=== PATIENT | female | born 1975 | race Asian ===

== ENCOUNTER 2016-07-14 22:08 | Emergency (ER) | payer BC ==
[~2016-07-14] VITALS: Ht 160 cm; Wt 82.0 kg
[~2016-07-14 22:08] MED LIST: LEVO25TA53 PO; NITR-58 PO
[2016-07-14 22:20] VITALS: Ht 160 cm; Wt 82.0 kg
[2016-07-15 01:51] LABS: ADD SCAN DIFF NO
[2016-07-15 01:56] LABS: BASOPHIL # 0.1 10^3/ul (0.0-0.1); BASOPHILS % 0.8 % (0.0-2.0); EOSINOPHILS # 0.6 10^3/ul (0.0-0.5); EOSINOPHILS % 6.9 % (0.0-7.0); HEMATOCRIT 39.7 % (37.0-47.0); LYMPHOCYTES % 35.9 % (15.0-51.0); MEAN CORPUSCULAR HEMOGLOBIN 28.6 pg (29.0-33.0); MEAN CORPUSCULAR HGB CONC 32.7 g/dl (32.0-37.0); MEAN CORPUSCULAR VOLUME 87.4 fl (82.0-101.0); MEAN PLATELET VOLUME 10.4 fl (7.4-10.4); MONOCYTE # 0.5 10^3/ul (0.3-0.9); MONOCYTES % 5.7 % (0.0-11.0); NEUTROPHIL # 4.2 10^3/ul (1.6-7.5); NEUTROPHILS % 50.3 % (39.0-77.0); PLATELET COUNT 351 10^3/UL (140-415); RED BLOOD COUNT 4.54 10^6/ul (4.20-5.40); RED CELL DISTRIBUTION WIDTH 12.9 % (11.5-14.5); WHITE BLOOD COUNT 8.3 10^3/ul (4.8-10.8)
[2016-07-15 02:14] LABS: INR 0.87; PROTIME 11.8 Sec (12.2-14.2); PT RATIO 0.9
[2016-07-15 02:15] LABS: PARTIAL THROMBOPLASTIN TIME 28.1 Sec (25.0-35.0)
[2016-07-15 02:18] LABS: ALANINE AMINOTRANSFERASE 38 IU/L (13-69); ALBUMIN 5.2 g/dl (3.3-4.9); ALBUMIN/GLOBULIN RATIO 1.67; ALKALINE PHOSPHATASE 56 IU/L (42-121); ANION GAP 16 (8-16); ASPARTATE AMINO TRANSFERASE 22 IU/L (15-46); BILIRUBIN,INDIRECT 0.2 mg/dl (0-1.1); BILIRUBIN,TOTAL 0.2 mg/dl (0.2-1.3); BLOOD UREA NITROGEN 9 mg/dl (7-20); CALCIUM 9.3 mg/dl (8.4-10.2); CARBON DIOXIDE 26 mmol/L (21-31); CHLORIDE 106 mmol/L (97-110); CREATININE 0.63 mg/dl (0.44-1.00); GLUCOSE 109 mg/dl (70-220); POTASSIUM 3.6 mmol/L (3.5-5.1); SODIUM 144 mmol/L (135-144); TOTAL PROTEIN 8.3 g/dl (6.1-8.1)
[2016-07-15 02:28] LABS: B-TYPE NATRIURETIC PEPTIDE 34 PG/ML (0-125)
--- NOTE | 2016-07-15 02:42 | RADRPT ---
PROCEDURE: XR Chest. CLINICAL INDICATION: Chest pain TECHNIQUE: Single frontal view of the chest was obtained COMPARISON: None FINDINGS: The heart and mediastinum are within normal limits. The lungs are clear. There is no pleural effusion or pneumothorax. ECG leads projected over the chest. IMPRESSION: No acute disease. RPTAT: HJES .George Blanco MD, MD Date Time Electronically viewed and signed by .George Blanco MD, MD on 07/15/2016 02:42 .S/
[2016-07-15 02:53] LABS: TROPONIN-I < 0.012 ng/ml (0.00-0.12)
--- NOTE | 2016-07-15 03:20 | ERD ---
ER Documentation Chief Complaint Date/Time DATE: 07/15/16 TIME: 03:18 Chief Complaint back pain and radiates to the chest x2 hours, Hx of Hypothyroid HPI This a 41-year-old female who has chest pain that radiates around her chest wall to her back from the right side 2 hours. Patient has a history of hypothyroid disease but says is well controlled. Pain is mild to moderate in intensity. She says she been very anxious lately. Denies any fevers or chills. Denies any other current issues. ROS All systems reviewed and are negative except as per history of present illness. Medications Home Meds Active Scripts Nitrofurantoin Monohyd Macrocr* (Macrobid*) 100 Mg Capsr, 100 MG PO BID for 7 Days, CAP Prov:MAGDA CALLOWAY PA-C 01/22/15 Reported Medications Levothyroxine Sodium* (Levothyroxine Sodium*) 25 Mcg Tablet, 25 MCG PO DAILY 09/07/11 Allergies Allergies: Coded Allergies: No Known Allergy (Unverified , 09/07/11) PMhx/Soc History of Surgery: No Anesthesia Reaction: No Hx Neurological Disorder: No Hx Respiratory Disorders: No Hx Cardiac Disorders: No Hx Psychiatric Problems: No Hx Miscellaneous Medical Probl: Yes (hypothyroid) Hx Alcohol Use: No Hx Substance Use: No Hx Tobacco Use: No Smoking Status: Never smoker Physical Exam Vitals Vital Signs Date Time Temp Pulse Resp B/P Pulse Ox O2 Delivery O2 Flow Rate FiO2 07/14/16 22:20 98.7 79 20 117/75 100 Physical Exam Const: [] Head: Atraumatic Eyes: Normal Conjunctiva ENT: Normal External Ears, Nose and Mouth. Neck: Full range of motion..~ No meningismus. Resp: Clear to auscultation bilaterally Cardio: Regular rate and rhythm, no murmurs Abd: Soft, non tender, non distended. Normal bowel sounds Skin: No petechiae or rashes Back: No midline or flank tenderness Ext: No cyanosis, or edema Neur: Awake and alert Psych: Normal Mood and Affect Result Diagram: 07/15/1613407/15/16134 Results 24 hrs Laboratory Tests Test 07/15/16 01:35 White Blood Count 8.310^3/ul Red Blood Count 4.5410^6/ul Hemoglobin 13.0g/dl Hematocrit 39.7% Mean Corpuscular Volume 87.4fl Mean Corpuscular Hemoglobin 28.6pg Mean Corpuscular Hemoglobin Concent 32.7g/dl Red Cell Distribution Width 12.9% Platelet Count 88349^3/UL Mean Platelet Volume 10.4fl Neutrophils % 50.3% Lymphocytes % 35.9% Monocytes % 5.7% Eosinophils % 6.9% Basophils % 0.8% Nucleated Red Blood Cells % 0.0/100WBC Neutrophils # 4.210^3/ul Lymphocytes # 3.010^3/ul Monocytes # 0.510^3/ul Eosinophils # 0.610^3/ul Basophils # 0.110^3/ul Nucleated Red Blood Cells # 0.010^3/ul Prothrombin Time 11.8Sec Prothrombin Time Ratio 0.9 INR International Normalized Ratio 0.87 Activated Partial Thromboplast Time 28.1Sec Sodium Level 144mmol/L Potassium Level 3.6mmol/L Chloride Level 106mmol/L Carbon Dioxide Level 26mmol/L Anion Gap 16 Blood Urea Nitrogen 9mg/dl Creatinine 0.63mg/dl Glucose Level 109mg/dl Calcium Level 9.3mg/dl Total Bilirubin 0.2mg/dl Direct Bilirubin 0.00mg/dl Indirect Bilirubin 0.2mg/dl Aspartate Amino Transf (AST/SGOT) 22IU/L Alanine Aminotransferase (ALT/SGPT) 38IU/L Alkaline Phosphatase 56IU/L Troponin I < 0.012ng/ml B-Type Natriuretic Peptide 34PG/ML Total Protein 8.3g/dl Albumin 5.2g/dl Globulin 3.10g/dl Albumin/Globulin Ratio 1.67 Procedures/MDM EKG: Rate/Rhythm: [Normal Sinus Rhythm] QRS, ST, T-waves: [No changes consistent w/ acute ischemia] Impression: [No evidence of ischemia or arrhythmia] Chest X-ray 1V Interpreted by me: Soft Tissue: No acute abnormalities Bones: No acute abnormalities Mediastinum/Cardiac Silhouette/Lungs: [No acute abnormalities] Patient's thoracic symptoms have stabilized while in the department and are stable for outpatient follow up. Exam and work up not consistent w/ ischemia, arrhythmia, PE or dissection. Symptomology consistent with anxiety. She is completely chest pain-free at this time. She has no risk factors. She will be discharged home. She is to return immediately for any return of chest pain via 911. This is all been discussed at the bedside with the patient Departure Diagnosis: Primary Impression: Chest pain Chest pain type: unspecified Qualified Code: R07.9 - Chest pain, unspecified type Condition: Stable MORGAN NULL Jul 15, 2016 03:19
[2016-07-15] MEDS ORDERED: IBUP200C11 PO (03:30)
[2016-07-15] MEDS ORDERED: CHOL20003 PO (03:30)
[2016-07-15 03:45] VITALS: BP 100/78; PULSE 73; RESP 18
== END 2016-07-15 04:00 | disposition home or self-care (01) ==
LOC: E/R 22:08
DX: R07.89 Other chest pain (principal); E03.9 Hypothyroidism, unspecified
CPT/HCPCS: 36415; 71010; 80053; 83880; 84484; 85025; 85610; 85730; 93005; Z7502